=== PATIENT | female | born 1985 | race Two or more races ===

== ENCOUNTER 2018-07-01 14:35 | Emergency (ER) | payer OTHER ==
[2018-07-01 15:27] LABS: Hematocrit 41 % (35-47); Mean Corpuscular HGB Conc 32 g/dl (31-36); Mean Corpuscular Hemoglobin 24 pg (27-31); Mean Corpuscular Volume 74 fL (80-97); Mean Platelet Volume 8.5 fL (7.4-10.4); Platelet Count 318 10^3/ul (150-450); Red Blood Count 5.51 10^6/ul (4.00-5.40); Red Cell Distribution Width 14 % (10.5-15); White Blood Count 13.3 10^3/ul (3.5-10.8)
--- NOTE | 2018-07-01 15:37 | ED ---
Breast Complaint - HPI Summary HPI Summary: A 33 y/o F presents to ED with c/o worsening L breast pain onset one week ago. Pain described as heaviness and swelling. She feels something hard in her breast. Pt went to Urgent Care today and was sent to ED for further evaluation by U/S. Associated sx: mild fever. Denies discharge from nipple, [place]. No daily medications, states being healthy otherwise. Pt received her flu shot four days ago. - History of Current Complaint Hx Obtained From: Patient, Family/Marketing Support Assistant - , Medical Records Breast Chief Complaint: Pain, Breast, Left, Palpable Lump Onset/Duration: Started Days Ago, Still Present Timing: Constant Breast Associated Signs/Symptoms: Fever, Nodule/Mass - Allergy/Home Medications Allergies/Adverse Reactions: Allergies Allergy/AdvReac Type Severity Reaction Status Date / Time No Known Allergies Allergy Verified 06/19/15 09:47 PMH/Surg Hx/FS Hx/Imm Hx Previously Healthy: Yes Respiratory History: Denies: Hx Chronic Obstructive Pulmonary Disease (COPD) Opthamlomology History: Denies: Hx Legally Blind Neurological History: Denies: Hx Dementia Infectious Disease History: No Infectious Disease History: Denies: Traveled Outside the [place] in Last 30 Days - Family History Known Family History: Positive: Hypertension - mom, Diabetes - mom Family History: father- stroke - Social History Occupation: Unemployed Lives: With Family Alcohol Use: None Hx Substance Use: No Substance Use Type: Reports: None Hx Tobacco Use: No Smoking Status (MU): Never Smoked Tobacco Review of Systems - ROS Summary Review of Systems Summary: Pos: L breast pain. Neg: discharge from nipple. Positive: Fever Negative: Abdominal Pain, Vomiting Negative: Headache All Other Systems Reviewed And Are Negative: Yes Physical Exam - Summary Physical Exam Summary: Appearance: Well-appearing, Well-nourished, lying in bed comfortably Skin: Warm, dry, no obvious rash Eyes: sclera anicteric, no conjunctival pallor ENT: mucous membranes moist, pharynx appears normal Neck: Supple, nontender Respiratory: Clear to auscultation, no signs of respiratory distress Cardiovascular: Normal S1, S2. No murmurs. Normal distal pulses in tibial and radial bilaterally. Abdomen: Soft, nontender, normal active bowel sounds present Musculoskeletal: Normal, Strength/ROM Intact Neurological: A&Ox3, awake and alert, mentation is normal, speech is fluent and appropriate Psychiatric: affect is normal, does not appear anxious or depressed Breast: L breast is erythematous and indurated without pointing from 1 o'clock to 4 o'clock position. Triage Information Reviewed: Yes Vital Signs On Initial Exam: Initial Vitals Temp Pulse Resp BP Pulse Ox 100.2 F 121 18 131/83 99 07/01/18 14:40 07/01/18 14:40 07/01/18 14:40 07/01/18 14:40 07/01/18 14:40 Vital Signs Reviewed: Yes Diagnostics - Vital Signs Vital Signs Temp Pulse Resp BP Pulse Ox 07/01/18 14:40 100.2 F 121 18 131/83 99 - Laboratory Lab Results: Lab Results 07/01/18 Range/Units 15:13 WBC 13.3 H (3.5-10.8) 10^3/ul RBC 5.51 H (4.00-5.40) 10^6/ul Hgb 13.0 (12.0-16.0) g/dl Hct 41 (35-47) % MCV 74 L (80-97) fL MCH 24 L (27-31) pg MCHC 32 (31-36) g/dl RDW 14 (10.5-15) % Plt Count 318 (150-450) 10^3/ul MPV 8.5 (7.4-10.4) fL Neut % (Auto) Pending Lymph % (Auto) Pending Mcduffie % (Auto) Pending Eos % (Auto) Pending Baso % (Auto) Pending Absolute Neuts (auto) Pending Absolute Lymphs (auto) Pending Absolute Monos (auto) Pending Absolute Eos (auto) Pending Absolute Basos (auto) Pending Absolute Nucleated RBC Pending Nucleated RBC % Pending Result Diagrams: 07/01/18 15:13 07/01/18 15:13 Lab Statement: Any lab studies that have been ordered have been reviewed, and results considered in the medical decision making process. - Ultrasound No standard instances Ultrasound Interpretation Completed By: Radiologist Summary of Ultrasound Findings: LEFT BREAST U/S, Impression: No abscess is noted. Ectasia of the intramammary ducts with debris within the duct may represent periductal mastitis. ED provider has reviewed this report. Re-Evaluation - Re-Evaluation 1 Re-Evaluation Time: 17:01 Change: Unchanged Comment: Discussing U/S results with pt and , plans to D/C and to f/u with Dr. Hernandez, surgery. Pt voiced understanding. Breast Pain Course/Dx - Course Course Of Treatment: Pt is a 33 y/o F presenting with worsening L breast pain onset one week ago. Pain described as heaviness and swelling. She feels something hard in her breast. Associated sx: mild fever. Denies discharge from nipple, [place]. Pt received her flu shot four days ago. Pert PE findings: L breast is erythematous and indurated without pointing from 1 o'clock to 4 o'clock position. L Breast U/S shows "No abscess is noted. Ectasia of the intramammary ducts with debris within the duct may represent periductal mastitis.". Patient will be discharged home with Keflex, and to f/u with Dr. Hernandez, surgery. - Differential Diagnoses Differential Diagnosis/HQI/PQRI: Breast Abscess, Fibrocystic Breast Disease - Diagnoses Provider Diagnoses: Mastitis without abscess - Provider Notifications Discussed Care Of Patient With: Demario Hernandez - surgery Time Discussed With Above Provider: 15:50 Instructed by Provider To: Other - Spoke to activities assistant, will return call when Dr. Hernandez is out of surgery. Discharge - Sign-Out/Discharge Documenting (check all that apply): Patient Departure - DC - Discharge Plan Condition: Good Disposition: HOME Prescriptions: Cephalexin CAP* [Keflex CAP*] 500 mg PO QID #40 cap Patient Education Materials: Mastitis (ED) Referrals: Demario Hernandez MD [Medical Doctor] - Additional Instructions: Call Dr. Hernandez's office tomorrow to get an appt for . As long as your breast is not getting any worse you can see him or one of his partners in the office for a followup check. If the area is getting worse, you should return here. - Billing Disposition and Condition Condition: GOOD Disposition: Home - Attestation Statements Document Initiated by Scribe: Yes Documenting Scribe: Poonam Garcia Provider For Whom Allenibe is Documenting (Include Credential): Dr. Rogers Connelly MD Scribe Attestation: I, anh Kirkpatrick for Dr. Rogers Connelly MD on 07/01/18 at 1932. Scribe Documentation Reviewed: Yes Provider Attestation: The documentation as recorded by the scribe, Poonam Garcia accurately reflects the service I personally performed and the decisions made by me, DrJagruti Connelly MD Status of Scribe Document: Viewed
[2018-07-01 15:48] LABS: ABS Basophils 0 10^3/ul (0-0.2); ABS Eosinophils 0.2 10^3/ul (0-0.6); ABS Lymphocytes 3.1 10^3/ul (1.0-4.8); ABS Monocytes 1.1 10^3/ul (0-0.8); ABS Neutrophils 8.8 10^3/ul (1.5-7.7); ABS Nucleated RBC 0 10^3/ul; Anion Gap 9 mmol/L (2-11); BUN/Creatinine Ratio 14.8 (8-20); Blood Urea Nitrogen 9 mg/dL (6-24); CO2 Carbon Dioxide 27 mmol/L (22-32); Calcium 9.7 mg/dL (8.6-10.3); Chloride 101 mmol/L (101-111); Eosinophil % 1.3 %; Glucose 108 mg/dL (70-100); Lymphocyte % 23.5 %; Nucleated Red Blood Cells % 0.1; Sodium 137 mmol/L (135-145)
[2018-07-01 15:55] LABS: HCG Pregnancy < 0.60 mIU/mL
[2018-07-01] MEDS ORDERED: Cephalexin CAP* 500 MG PO ONE (16:19)
[2018-07-01] MEDS ORDERED: ceFAZolin 1 GM ADVAN(*) 1 GM in NS 0.9% 50 ML* 50 ML IVPB ONE (16:20)
[2018-07-01 17:49] VITALS: BP 128/83
[2018-07-01] MEDS ORDERED: Cephalexin CAP* 500 MG ONE (17:51)
== END 2018-07-01 17:46 | disposition home or self-care (01) ==
LOC: ED 14:35
DX: N61.0 Mastitis without abscess (principal)
CPT/HCPCS: 36415; 80048; 84702; 85025; 99282; A9270-GY